=== PATIENT | female | born 1995 | race Caucasian/White ===

== ENCOUNTER 2024-03-15 15:04 | Emergency (ER) | payer OTHER ==
--- OUTSIDE RECORDS SUMMARY | 2024-03-15 15:08 | XMS REPORT | Continuity of Care Document ---
Author Name Unknown Address [address] [facility] [address] [place] [address] [facility] Address [address] [facility] [address] [place] [address] Care Team Providers Care Hammer Runner Name Role Phone PCP, PATIENT DOES NOT HAVE A Primary Care Physic russ Unavailable JACOBS, LORIE FILEMON Attending Clinician Unavailable JACOBS, LORIE CAM Attending Clinician Unavailable Lorie Jacobs MD Attending Clinician [phone] Margie Hutton MD Attending Clinician [phone] AURELIO REESE Attending Clinician Unavailable AURELIO REESE Attending Clinician Unavailable Aurelio Reese NP Attending Clinician [phone] Doctor Unassigned, [place] Attending Clinician U navailable [email or web address] Attending Clinician Unavailhugo Menezes MD, Saji Wiggins Attending Clinician [phone] [employer], [facility] Attending Clinician Unavailable Pob, [facility] Attending Clinician UnavailCarola Cook MD Attending Clinician [phone] CAROLA LOPEZ Attending Clinician Unavailable RENAE WINSTON Attending Clinician Unavailable RENAE WINSTON Attending Clinician Unavailable Ultrasound, [facility] Attending Clinician UnavailRenae Lau MD Attending Clinician [phone], [facility] Attending Clinician Unavailable Kerry Gentile PA-C Attending Clinician KERRY GENTILE Attending Clinician Unavailable LORIE JACOBS Admitting Clinician Unavailable Lorie Jacobs MD Admitting Clinician [phone] [email or web address] Admitting Clinician Unavaila LORIE Griffiths Admitting Clinician Unavailable Payers Payer Name Policy Type Policy Number Effective Date Expirati on Date Source [facility] [id number] 2023 00:00[facility]00 [id number] 2022 00:00:00 Problems Condition Name Condition Details Condition Category Status Onset Date Resolution Date Last Treatment Date Treating Clinician Comments Source 38 weeks gestation of 38 weeks gestation of Disease Active 2023-03 00:00: 00 [facility] No care in current in third trimester No care in current in third trimester Disease Active 2023-03 00:00: 00 [facility] Mild pre-eclamp chrissie in third trimester Mild pre-eclamp chrissie in third trimester Disease Active 2023-03 00:00: 00 [facility] Maternal care for decelerati ons during Maternal care for decelerati ons during Disease Active 2023-03 00:00: 00 [facility] Encounter for screening for maternal depression Encounter for screening for maternal depression Disease Active 2022-03 00:00: 00 [facility] Obesity (BMI 30-39.9) Obesity (BMI 30-39.9) Disease Active 5-15 00:00: 00 [facility] Liveborn infant, of etienne , born in hospital by vaginal delivery Liveborn , of etienne , born in hospital by vaginal delivery Disease Active 2022-03 0-26 00:00: 00 2023-02-15 00:00:00 2023-02-15 13:52:47 [facility] 39 weeks gestation of 39 weeks gestation of Disease Resolve d 2022-03 0-25 00:00: 00 2023-02-15 00:00:00 2023-02-15 13:52:46 [facility] Polyhydram nios, antepartum , single or unspecifie d fetus Polyhydram nios, antepartum , single or unspecifie d fetus Disease Resolve d 8-29 00:00: 00 2023-02-15 00:00:00 2023-02-15 13:52:45 [facility] Gastroesop hageal reflux disease, unspecifie d whether esophagiti s present Gastroesop hageal reflux disease, unspecifie d whether esophagiti s present Disease Resolve d 7-21 00:00: 00 2023-02-15 00:00:00 2023-02-15 13:52:44 [facility] High-risk in third trimester High-risk in third trimester Disease Active 5-15 00:00: 00 2023-02-15 00:00:00 2023-02-15 13:52:41 [facility] Allergies, Adverse Reactions, Alerts Allergy Name Allergy Type Status Severity Reaction(s) Onset Date Inactive Date Treating Clinician Comments Source NO KNOWN ALLERGIE S Drug Class Active [facility] Social History Social Habit Start Date Stop Date Quantity Comments Source ASSERTION 2022-04-25 00:00:00 [facility] Gender identity [facility] History of tobacco use Passive smoker [facility] Alcoholic beverage intake 2024-01-27 00:00:00 2024-01-27 00:00:00 Ex-drinker (finding) [facility] Tobacco use and exposure 2024-01-26 00:00:00 2024-01-26 00:00:00 Smokeless tobacco non-user [facility] Education 2024-01-26 00:00:00 2024-01-26 00:00:00 13 [facility] Alcohol intake 2023-02-15 00:00:00 2023-02-15 00:00:00 Ex-drinker (finding) [facility] History of Social function 2022-12-21 00:00:00 2022-12-21 00:00:00 [facility] Exposure to SARS-CoV-2 (event) 2022-08-04 00:00:00 2022-08-14 07:54:00 Not sure [facility] Sex assigned at 1995 00:00:00 1995 00:00:00 [facility] Smoking Status Start Date Stop Date Source Tobacco smoking consumption unknown [facility] Never smoked tobacco [facility] Medications Ordered Medication Name Filled Medication Name Start Date Stop Date Current Medication? Ordering Clinician Indication Dosage Frequency Signature (SIG) Comments Components Source vitamin w/FA tablet 2023-03 00:00: 00 Yes [id number] 102 1{tbl} Take 1 tablet by mouth in the morning. [facility] docusate 100 mg capsule 2023-03 00:00: 00 Yes [id number] 102 200mg Take 2 capsules by mouth once daily as needed for Constipati on. [facility] ferrous sulfate 325 mg (65 mg iron) tablet 2023-03 00:00: 00 Yes [id number] 102 325mg Take 1 tablet by mouth in the morning. [facility] ibuprofen 800 mg tablet 2023-03 00:00: 00 Yes [id number] 102 800mg Take 1 tablet by mouth every 8 (eight) hours as needed (pain). Take with food or milk. [facility] acetaminoph en 500 mg tablet 2023-03 00:00: 00 Yes [id number] 102 1000mg Take 2 tablets by mouth every 8 (eight) hours as needed for Pain. [facility] KCL (KLOR-CON M20) tablet 40 mEq 2023-03 16:45: 00 01-26 16:45 :00 No 40meq 40 mEq, Oral, ONCE, 1 dose, On Sat01/27/24 at 1045, Routine [facility] magnesium sulfate in water 2 gram/50 mL (4 %) infusion 2 g 2023-03 16:45: 00 01-26 17:59 :00 No 2g 2 g, IV Piggyback, Administer over 60 Minutes, ONCE, 1 dose, On Sat01/27/24 at 1045, Routine [facility] famotidine (PEPCID (PF)) injection 20 mg 2023-03 14:30: 00 Yes 20mg 20 mg, Slow IV Push, Q12H, First dose on Sat01/27/24 at 0830, Until Discontinu ed, Routine [facility] rho(D) immune globulin (RHOPHYLAC) injection 300 mcg 2023-03 14:21: 10 Yes 300ug [facility] witch Amor (TUCKS) 50 % topical pad 2023-03 14:21: 03 Yes Topical, Q4HPRN, Starting on Sat01/27/24 at 0821, Until Discontinu ed, Routine, rectal/hem orrhoidal pain [facility] HYDROcodone -acetaminop hen (NORCO 5) tablet 1 tablet 2023-03 14:21: 03 Yes 1{tbl} [facility] ibuprofen (IBU) tablet 600 mg 2023-03 14:21: 03 Yes 600mg 600 mg, Oral, Q6HPRN, Starting on Sat01/27/24 at 0821, Until Discontinu ed, Routine, Pain (scale 4-6) [facility] acetaminoph en (TYLENOL) tablet 650 mg 2023-03 14:21: 03 Yes 650mg [facility] diphenhydrA MINE (BENADRYL) tablet 25 mg 2023-03 14:21: 03 Yes 25mg [facility] ondansetron (ZOFRAN (PF)) injection 4 mg 2023-03 14:21: 03 Yes 4mg [facility] simethicone (GAS RELIEF (SIMETHICON E)) chewable tablet 160 mg 2023-03 14:21: 03 Yes 160mg [facility] docusate (COLACE) capsule 200 mg 2023-03 14:21: 03 Yes 200mg [facility] magnesium hydroxide (MILK OF MAGNESIA) 400 mg/5 mL suspension 30 mL 2023-03 14:21: 03 Yes 30mL [facility] benzocaine- menthol (DERMOPLAST ) 20-0.5 % topical spray 2023-03 14:21: 03 Yes Topical, PRN, Starting on Sat01/27/24 at 0821, Until Discontinu ed, Routine, Perineum discomfort [facility] NaCl 0.9% (NS) bolus infusion 500 mL 2023-03 08:45: 00 01-26 07:55 :00 No 500mL at 999 mL/hr, 500 mL, IV Infusion, ONCE, 1 dose, On Sat01/27/24 at 0245, STAT [facility] fentaNYL-ro pivacaine 2 mcg/mL-0.1 % (PF) in NS 200 mL epidural infusion RTU 2023-03 08:12: 00 01-26 21:11 :27 No Intra-op [facility] KCL (KLOR-CON M20) tablet 40 mEq 2023-03 03:30: 00 01-26 07:51 :00 No 40meq 40 mEq, Oral, Q4H, 2 doses, First dose on Sat01/26/24 at 2130, Last dose on Sat01/27/24 at 0000, Routine [facility] oxytocin (PITOCIN) 30 units in NS 500 mL IV infusion 2023-03 03:01: 36 01-26 14:21 :08 No 2mU/min at 2-40 mL/hr, IV Infusion, TITRATE, Starting on Sat01/26/24 at 2101, Until Sat01/27/24 at 0821, SULMA [facility] proMETHazin e (PHENERGAN) 25 mg in NS 50 mL IV piggyback (CNR) 2023-03 02:46: 09 Yes 25mg 25 mg, IV Piggyback, at 200 mL/hr Administer over 15 Minutes, Q6HPRN, Starting on Sat01/26/24 at 2046, Until Discontinu ed, Routine, Nausea and Vomiting (N/V) [facility] FENTanyl (PF) (SUBLIMAZE) injection 100 mcg 2023-03 02:03: 35 01-26 14:21 :08 No 100ug 100 mcg, Slow IV Push, Q1HPRN, Starting on Sat01/26/24 at 2002, Until Sat01/27/24 at 0821, Routine, Pain (scale 7-10) [facility] ondansetron (ZOFRAN (PF)) injection 4 mg 2023-03 02:02: 56 Yes 4mg 4 mg, Slow IV Push, Q8HPRN, Nausea and Vomiting (N/V), Starting on Sat01/26/24 at 2001, Doses of ondansetro n 16 mg and above need to be administer ed via IV piggyback. For Dose >=24mg ECG monitoring is advisable. [facility] methylergon ovine (METHERGINE ) injection 0.2 mg 2023-03 01:56: 16 01-26 13:23 :00 No .2mg 0.2 mg, Intramuscu lar, Q4HPRN, 1 dose, Starting on Sat01/26/24 at 1955, Until Sat01/27/24 at 0723, Routine, PPH [facility] oxytocin (PITOCIN) 30 units in NS 500 mL IV infusion 2023-03 01:56: 16 01-26 13:10 :00 No 600mL/h 600 mL/hr, IV Infusion, PRN, PPH, Starting on Sat01/26/24 at 1955, For 1 dose, As instructed by physician at bedside. [facility] sodium citrate-cit marge acid (BICITRA) 500-334 mg/5 mL solution 30 mL 2023-03 01:56: 16 01-26 06:29 :00 No 30mL 30 mL, Oral, PRE-PROCED URE ONCE, 1 dose, Starting on Sat01/26/24 at 1955, Until Sat01/27/24 at 0029, Routine, Surgery/Pr ocedure [facility] D5W-LR IV infusion 1,000 mL 2023-03 01:56: 16 01-26 14:21 :08 No 1000mL at 1-75 mL/hr, IV Infusion, TITRATE, Starting on Sat01/26/24 at 1955, Until Sat01/27/24 at 0821, Routine [facility] cefTRIAXone (ROCEPHIN) 2 g in NaCl 0.9% (NS) 100 mL MINI-BAG 12-02 22:45: 00 12-02 22:48 :00 No 2g 2 g, IV Piggyback, ONCE, 1 dose, On Sat12/03/23 at 1745, Administer over 30 Minutes, 100 mL, Reason for Anti-Infec tive: Documented Infection, Documented Infection Site: Urine, Duration of Therapy: Once (ED) [facility] pantoprazol e (PROTONIX) injection 40 mg 12-02 20:15: 00 12-02 19:25 :00 No 40mg 40 mg, Slow IV Push, ONCE, 1 dose, On Sat12/03/23 at 1515 [facility] ondansetron (ZOFRAN (PF)) injection 4 mg 12-02 19:30: 00 12-02 19:24 :00 No 4mg 4 mg, Slow IV Push, ONCE, 1 dose, On Sat12/03/23 at 1430, SULMA [facility] NaCl 0.9% (NS) bolus infusion 1,000 mL 12-02 19:15: 00 12-02 21:00 :00 No 1000mL at 999 mL/hr, 1,000 mL, IV Infusion, ONCE, 1 dose, On Sat12/03/23 at 1415, [facility] ondansetron 4 mg disintegrat ing tablet 12-02 00:00: 00 01-27 00:00 :00 No [id number] 4mg Take 1 tablet by mouth every 8 (eight) hours as needed for Nausea and Vomiting (N/V). [facility] proMETHazin e 25 mg suppository 12-02 00:00: 00 01-27 00:00 :00 No [id number] 25mg Insert 1 Suppositor y into rectum every 4 (four) hours as needed for Nausea and Vomiting (N/V) or N/V unresponsi ve to Ondansetro n. [facility] cefdinir 300 mg capsule 9-17 00:00: 00 12-17 04:59 :00 No [id number] 300mg Take 1 capsule by mouth every 12 (twelve) hours for 14 days. [facility] metroNIDAZO LE (FLAGYL) 500 mg tablet 2022-03 2- 00:00: 00 02-25 05:59 :00 No [id number] 500mg Take 1 tablet by mouth in the morning and 1 tablet in the evening. Do all this for 7 days. [facility] norgestimat e-ethinyl estradioL 0.25-35 mg-mcg per tablet 2022-03 00:00: 00 01-27 00:00 :00 No [id number] 1{tbl} Take 1 tablet by mouth in the morning. [facility] Nitrofurant oin&Nit. Macrocryst (MACROBID) 100 mg capsule 2022-03 00:00: 00 02-21 05:59 :00 No [id number] 100mg Take 1 capsule by mouth in the morning and 1 capsule in the evening. Do all this for 5 days. [facility] PNV no.95/chandrakant us fum/folic ac ( ORAL) 2022-03 0 07:46: 53 01-11 00:00 :00 No Take by mouth. [facility] vitamin w/FA tablet 2022-03 0 00:00: 00 01-27 00:00 :00 No [id number] 102 1{tbl} Take 1 tablet by mouth in the morning. [facility] docusate 100 mg capsule 2022-03 0 00:00: 00 01-25 00:00 :00 No [id number] 102 200mg Take 2 capsules by mouth once daily as needed for Constipati on. [facility] ferrous sulfate 325 mg (65 mg iron) tablet 2022-03 0 00:00: 00 01-25 00:00 :00 No [id number] 102 325mg Take 1 tablet by mouth in the morning and 1 tablet in the evening. [facility] ibuprofen 600 mg tablet 2022-03 00:00: 00 01-25 00:00 :00 No [id number] 102 600mg Take 1 tablet by mouth every 6 (six) hours as needed (Pain). Take with food or milk. [facility] rho(D) immune globulin (RHOGAM) syringe 300 mcg 2022-03 07:41: 56 Yes 300ug 300 mcg, Intramuscu lar, ONCE, For 1 dose, Conditiona l, Routine [facility] witch Amor (TUCKS) 50 % topical pad 2022-03 07:41: 51 Yes Topical, Q4HPRN, Starting on Sat01/10/23 at 024, Until Discontinu ed, Routine, rectal/hem orrhoidal pain [facility] HYDROcodone -acetaminop hen (NORCO 5) 5-325 mg tablet 1 tablet 2022-03 07:41: 51 Yes 1{tbl} 1 tablet, Oral, Q6HPRN, Starting on Sat01/10/23 at 024, Until Discontinu ed, Routine, Pain (scale 7-10) [facility] ibuprofen (IBU) tablet 600 mg 2022-03 07:41: 51 Yes 600mg 600 mg, Oral, Q6HPRN, Starting on Sat01/10/23 at 024, Until Discontinu ed, Routine, Pain (scale 4-6) [facility] acetaminoph en (TYLENOL) tablet 650 mg 2022-03 07:41: 51 Yes 650mg 650 mg, Oral, Q6HPRN, Starting on Sat01/10/23 at 024, Until Discontinu ed, Routine, Pain (scale 1-3) [facility] diphenhydrA MINE (BENADRYL) tablet 25 mg 2022-03 07:41: 51 Yes 25mg 25 mg, Oral, Q6HPRN, Starting on Sat01/10/23 at 024, Until Discontinu ed, Routine, Sleep, Itching [facility] ondansetron (ZOFRAN (PF)) injection 4 mg 2022-03 07:41: 51 Yes 4mg 4 mg, Slow IV Push, Q8HPRN, Starting on Sat01/10/23 at 0241, Until Discontinu ed, Routine, Nausea and Vomiting (N/V) [facility] simethicone (GAS RELIEF (SIMETHICON E)) chewable tablet 160 mg 2022-03 07:41: 51 Yes 160mg 160 mg, Oral, PC+HSPRN, Starting on Sat01/10/23 at 024, Until Discontinu ed, Routine, Gas [facility] docusate (COLACE) capsule 200 mg 2022-03 07:41: 51 Yes 200mg 200 mg, Oral, QDAILYPRN, Starting on Sat01/10/23 at 0241, Until Discontinu ed, Routine, Constipati on [facility] magnesium hydroxide (MILK OF MAGNESIA) 400 mg/5 mL suspension 30 mL 2022-03 07:41: 51 Yes 30mL 30 mL, Oral, QDAILYPRN, Starting on Sat01/10/23 at 024, Until Discontinu ed, Routine, Constipati on [facility] benzocaine- menthol (DERMOPLAST ) 20-0.5 % topical spray 2022-03 07:41: 51 Yes Topical, PRN, Starting on Sat01/10/23 at 024, Until Discontinu ed, Routine, Perineum discomfort [facility] PNV no.95/chandrakant us fum/folic ac ( ORAL) 2022-03 02:33: 55 Yes Take by mouth. [facility] fentaNYL-ro pivacaine 2 mcg/mL-0.1 % (PF) in NS 200 mL epidural infusion RTU 2022-03 01:02: 00 01-10 19:56 :10 No Epidural, ONCE INTRA PROCEDURE, Starting on Sat01/09/23 at 2001, Until Sat01/10/23 at 1456, Routine, Intra-op [facility] lidocaine-e pinephrine (XYLOCAINE W/EPINEPHRI NE) 1.5 %-1:200,000 injection 2022-03 00:53: 00 01-10 11:50 :28 No Intraderma l, ONCE INTRA PROCEDURE, Starting on Sat01/09/23 at 1953, Until Discontinu ed, Routine, Intra-op [facility] misoprostol (CYTOTEC) quarter-tab let 25 mcg 2022-03 16:00: 00 01-10 07:41 :54 No 25ug 25 mcg, Vaginal, Q4H ABX, First dose on Sat01/09/23 at 1100, Until Discontinu ed, Routine [facility] misoprostol (CYTOTEC) quarter-tab let 25 mcg 2022-03 15:00: 00 01-09 16:46 :00 No 25ug 25 mcg, Oral, ONCE, 1 dose, On Sat01/09/23 at 1000, Routine [facility] FENTanyl PF (SUBLIMAZE (PF)) injection 100 mcg 2022-03 14:46: 47 01-10 07:41 :54 No 100ug 100 mcg, Slow IV Push, Q1HPRN, Starting on Sat01/09/23 at 0946, Until Veronica 01/10/23 at 0241, Routine, Pain (scale 7-10), contractio n pain without an epidural and SVE < 8 cm and Cat I strip [facility] oxytocin (PITOCIN) 30 units in NS 500 mL IV infusion 2022-03 14:44: 52 01-10 05:00 :22 No 600mL/h 600 mL/hr, IV Infusion, PRN, PPH, Starting on Sat01/09/23 at 0944, For 1 dose
As instructed by physician at bedside.<b r> [facility] lactated ringers IV infusion 500 mL 2022-03 14:44: 52 01-10 07:41 :54 No 500mL at 999 mL/hr, 500 mL, IV Infusion, PRN - SEE INSTRUCTIO NS, Starting on Sat01/09/23 at 0944, Until Veronica 01/10/23 at 0241, Routine [facility] D5W-LR IV infusion 1,000 mL 2022-03 14:44: 52 01-10 07:41 :54 No 1000mL at 1-125 mL/hr, IV Infusion, TITRATE, Starting on Sat01/09/23 at 0944, Until Sat01/10/23 at 0241, Routine [facility] famotidine 20 mg tablet - 00:00: 00 01-11 00:00 :00 No [id number] 20mg Take 1 tablet by mouth in the morning and 1 tablet in the evening. [facility] PNV no.95/chandrakant us fum/folic ac ( ORAL) 08-27 08:06: 41 Yes Take by mouth. [facility] doxylamine- pyridoxine, vit B6, (DICLEGIS) 10-10 mg per tablet 08-27 00:00: 00 01-11 00:00 :00 No [id number] 2{tbl} Take 2 tablets by mouth at bedtime. [facility] PNV no.95/chandrakant us fum/folic ac ( ORAL) 5-15 14:50: 30 Yes Take by mouth. [facility] Vital Signs Vital Name Observation Time Observation Value Comments S ource Systolic blood pressure 2024-01-28 13:15:00 130 mm[Hg] [facility] Diastolic blood pressure 2024-01-28 13:15:00 70 mm[Hg] [facility] Heart rate 2024-01-28 13:15:00 79 /min [facility] Body temperature 2024-01-28 13:15:00 36.83 [place] [facility] Respiratory rate 2024-01-28 13:15:00 16 /min [facility] Oxygen saturation in Arterial blood by Pulse oximetry 2024-01-28 13:15:00 99 /min [facility] Body height 2024-01-27 01:03:00 170.2 cm [facility] Body weight 2024-01-27 01:03:00 92.987 kg [facility] BMI 2024-01-27 01:03:00 32.11 kg/m2 [facility] Systolic blood pressure 2023-12-03 22:30:00 144 mm[Hg] [facility] Diastolic blood pressure 2023-12-03 22:30:00 74 mm[Hg] [facility] Heart rate 2023-12-03 22:30:00 88 /min [facility] Respiratory rate 2023-12-03 22:30:00 20 /min [facility] Oxygen saturation in Arterial blood by Pulse oximetry 2023-12-03 22:30:00 99 /min [facility] Body temperature 2023-12-03 17:53:00 36.89 [place] [facility] Body height 2023-12-03 17:53:00 170.2 cm [facility] Body weight 2023-12-03 17:53:00 104.327 kg [facility] BMI 2023-12-03 17:53:00 36.02 kg/m2 [facility] Systolic blood pressure 2023-02-15 20:07:00 118 mm[Hg] [facility] Diastolic blood pressure 2023-02-15 20:07:00 79 mm[Hg] [facility] Heart rate 2023-02-15 20:07:00 100 /min [facility] Respiratory rate 2023-02-15 20:07:00 18 /min [facility] Body height 2023-02-15 20:07:00 170.2 cm [facility] Body weight 2023-02-15 20:07:00 93.441 kg [facility] BMI 2023-02-15 20:07:00 32.26 kg/m2 [facility] Systolic blood pressure 2023-01-11 13:00:00 121 mm[Hg] [facility] Diastolic blood pressure 2023-01-11 13:00:00 84 mm[Hg] [facility] Heart rate 2023-01-11 13:00:00 68 [facility] Body temperature 2023-01-11 13:00:00 36.33 [place] [facility] Respiratory rate 2023-01-10 17:00:00 18 /min [facility] Oxygen saturation in Arterial blood by Pulse oximetry 2023-01-10 17:00:00 100 /min [facility] Body height 2023-01-09 15:23:00 170.2 cm [facility] Body weight 2023-01-09 15:23:00 103.692 kg [facility] BMI 2023-01-09 15:23:00 35.80 kg/m2 [facility] Systolic blood pressure 2022-12-26 19:11:00 129 mm[Hg] [facility] Diastolic blood pressure 2022-12-26 19:11:00 84 mm[Hg] [facility] Heart rate 2022-12-26 19:11:00 90 /min [facility] Body temperature 2022-12-26 19:11:00 36.28 [place] [facility] Body height 2022-12-26 19:11:00 170.2 cm [facility] Body weight 2022-12-26 19:11:00 103.511 kg [facility] BMI 2022-12-26 19:11:00 35.74 kg/m2 [facility] Systolic blood pressure 2022-12-21 15:54:00 132 mm[Hg] [facility] Diastolic blood pressure 2022-12-21 15:54:00 87 mm[Hg] [facility] Heart rate 2022-12-21 15:54:00 78 /min [facility] Respiratory rate 2022-12-21 15:54:00 18 /min [facility] Body height 2022-12-21 15:54:00 170.2 cm [facility] Body weight 2022-12-21 15:54:00 104.327 kg [facility] BMI 2022-12-21 15:54:00 36.02 kg/m2 [facility] Systolic blood pressure 2022-11-15 12:58:00 112 mm[Hg] [facility] Diastolic blood pressure 2022-11-15 12:58:00 74 mm[Hg] [facility] Heart rate 2022-11-15 12:58:00 77 /min [facility] Body temperature 2022-11-15 12:58:00 36.56 [place] [facility] Body height 2022-11-15 12:58:00 170.2 cm [facility] 2022-11-15 12:58:00 100.699 kg [facility] BMI 2022-11-15 12:58:00 34.77 kg/m2 [facility] Systolic blood pressure 2022-11-13 18:53:00 114 mm[Hg] [facility] Diastolic blood pressure 2022-11-13 18:53:00 74 mm[Hg] [facility] Heart rate 2022-11-13 18:53:00 94 /min [facility] Respiratory rate 2022-11-13 18:53:00 18 /min [facility] Body height 2022-11-13 18:53:00 170.2 cm [facility] Body weight 2022-11-13 18:53:00 100.789 kg [facility] BMI 2022-11-13 18:53:00 34.80 kg/m2 [facility] Oxygen saturation in Arterial blood by Pulse oximetry 2022-11-13 18:53:00 98 /min [facility] Systolic blood pressure 2022-10-05 17:58:00 130 mm[Hg] [facility] Diastolic blood pressure 2022-10-05 17:58:00 74 mm[Hg] [facility] Heart rate 2022-10-05 17:58:00 79 /min [facility] Body temperature 2022-10-05 17:58:00 36.72 [place] [facility] Respiratory rate 2022-10-05 17:58:00 18 /min [facility] Body height 2022-10-05 17:58:00 170.2 cm [facility] Body weight 2022-10-05 17:58:00 96.435 kg [facility] BMI 2022-10-05 17:58:00 33.30 kg/m2 [facility] Oxygen saturation in Arterial blood by Pulse oximetry 2022-10-05 17:58:00 99 /min [facility] Systolic blood pressure 2022-08-27 13:05:00 116 mm[Hg] [facility] Diastolic blood pressure 2022-08-27 13:05:00 69 mm[Hg] [facility] Heart rate 2022-08-27 13:05:00 77 /min [facility] Body temperature 2022-08-27 13:05:00 36.83 [place] [facility] Respiratory rate 2022-08-27 13:05:00 18 /min [facility] Body height 2022-08-27 13:05:00 170.2 cm [facility] Body weight 2022-08-27 13:05:00 94.348 kg [facility] BMI 2022-08-27 13:05:00 32.58 kg/m2 [facility] Systolic blood pressure 2022-07-30 19:48:00 102 mm[Hg] [facility] Diastolic blood pressure 2022-07-30 19:48:00 65 mm[Hg] [facility] Heart rate 2022-07-30 19:48:00 78 /min [facility] Body temperature 2022-07-30 19:48:00 36.89 [place] [facility] Respiratory rate 2022-07-30 19:48:00 18 /min [facility] Body height 2022-07-30 19:48:00 170.2 cm [facility] Body weight 2022-07-30 19:48:00 93.078 kg [facility] BMI 2022-07-30 19:48:00 32.14 kg/m2 [facility] Procedures Procedure Date / Time Performed Performing Clinician Source MAGNESIUM 2024-01-28 07:40:00 Lorie Jacobs [facility] BASIC METABOLIC PANEL (NA, K, CL, CO2, GLUCOSE, BUN, CREATININE, CA) 2024-01-28 07:40:00 Lorie Jacobs [facility] CBC WITH DIFF 2024-01-28 07:40:00 Lorie Jacobs [facility] SGOT (ASPARTATE AMINO TRANSFER) 2024-01-27 12:34:00 Lorie Jacobs [facility] CREATININE 2024-01-27 12:34:00 Lorie Jacobs [facility] ALANINE AMINO TRANSFERASE(SGPT 2024-01-27 12:34:00 Lorie Jacobs [facility] LACTATE DEHYDROGENASE 2024-01-27 12:34:00 Lorie Jacobs [facility] URIC ACID 2024-01-27 12:34:00 Lorie Jacobs [facility] MAGNESIUM 2024-01-27 12:34:00 Lorie Jacobs [facility] BASIC METABOLIC PANEL (NA, K, CL, CO2, GLUCOSE, BUN, CREATININE, CA) 2024-01-27 12:34:00 Lorie Jacobs [facility] CBC WITH DIFF 2024-01-27 12:34:00 Lorie Jacobs [facility] CENTRAL NEURAXIAL BLOCK 2024-01-27 08:00:00 Margie Hutton [facility] US PELVIS > 14 WEEKS WITH TRANSVAGINAL 2024-01-27 04:27:11 Lorie Jacobs [facility] AMYLASE 2024-01-27 02:28:00 Lorie Jacobs [facility] LIPASE 2024-01-27 02:28:00 Lorie Jacobs [facility] MAGNESIUM 2024-01-27 02:28:00 Lorie Jacobs [facility] COMP. METABOLIC PANEL ([id number]) 2024-01-27 02:28:00 Lorie Jacobs [facility] URINE DRUG (IMMUNOASSAY) - COMPREHENSIVE DRUG SCREEN 2024-01-27 02:28:00 Lorie Jacobs [facility] CBC WITH DIFF 2024-01-27 02:28:00 Lorie Jacobs [facility] URINALYSIS 2024-01-27 02:28:00 Lorie Jacobs [facility] HEPATITIS B SURFACE ANTIGEN 2024-01-27 02:28:00 Jacobs, Lorie [facility] HB ABO GROUPING 2024-01-27 02:28:00 JacobsLorie [facility] URINE CULTURE 2024-01-27 02:28:00 Jacobs Lorie [facility] RHO (D) IMMUNE GLOBULIN 2024-01-27 02:28:00 JacobsLorie [facility] ADC OR RIANA ONLY - RPR 2024-01-27 02:28:00 JacobsGracie [facility] HIV 1/2 AG-AB WITH REFLEX 2024-01-27 02:28:00 MarioGracie [facility] LIPASE 2023-12-03 19:23:00 Aurelio Reese [facility] COMP. METABOLIC PANEL ([id number]) 2023-12-03 19:23:00 Aurelio Reese [facility] CBC WITH DIFF 2023-12-03 19:23:00 Sav Aurelio [facility] URINALYSIS 2023-12-03 19:23:00 Sav Aurelio G [facility] CONSENT FOR CONTRACEPTION 2023-02-15 06:01:00 Do ctor Unassigned, [place] [facility] POCT TEST 2023-02-15 00:00:00 JacobsLorie [facility] CBC WITH DIFF 2023-01-11 08:21:00 [facility] CENTRAL NEURAXIAL BLOCK 2023-01-10 00:31:00 Monse Menezes [facility] US PELVIS > 14 WEEKS 2023-01-09 16:32:45 JacobsLorie [facility] CBC WITH DIFF 2023-01-09 16:32:00 Jacobs Lorie [facility] HEPATITIS B SURFACE ANTIGEN 2023-01-09 16:32:00 Jacobs [facility] HB ABO GROUPING 2023-01-09 16:32:00 JacobsLorie [facility] RHO (D) IMMUNE GLOBULIN 2023-01-09 16:32:00 Mario Lorie [facility] ADC OR RIANA ONLY - RPR 2023-01-09 16:32:00 Gracie Jacobs [facility] HIV 1/2 AG-AB WITH REFLEX 2023-01-09 16:32:00 Gracie Jacobs [facility] CONSENT/REFUSAL FOR DIAGNOSIS AND TREATMENT 2023-01-09 14:46:15 Doctor Unassigned, [place] [facility] ASSIGNMENT OF BENEFITS 2023-01-09 14:43:55 Docto r Unassigned, [place] [facility] NON-STRESS TEST 2022-12-26 20:27:33 Lorie Jacobs [facility] POCT URINALYSIS W/O SPECIFIC GRAVITY 2022-12-26 00:00:00 Lorie Jacobs [facility] NON-STRESS TEST 2022-12-21 17:51:42 Adum, Carola L [facility] DSU PRE-OP 2022-12-21 05:01:00 Doctor Unass igned, [place] [facility] POCT URINALYSIS W/O SPECIFIC GRAVITY 2022-12-21 00:00:00 Adum, Carola Guthrie [facility] DME/SUPPLY JUSTIFICATION 2022-11-28 05:01:00 Doc juan Unassigned, [place] [facility] NON-STRESS TEST 2022-11-15 16:08:32 Lorie Jacobs [facility] NON-STRESS TEST 2022-11-13 23:12:24 Lorie Jacobs [facility] POCT URINALYSIS W/O SPECIFIC GRAVITY 2022-11-13 00:00:00 Lorie Jacobs [facility] SECOND AND THIRD TRIMESTER ULTRASOUND 2022-11-02 19:55:00 Kerry Gentile [facility] POCT URINALYSIS W/O SPECIFIC GRAVITY 2022-10-05 00:00:00 Lorie Jacobs [facility] INSURANCE CORRESPONDENCE 2022-09-06 05:01:00 Kodak martinez Unassigned, [place] [facility] POCT URINALYSIS W/O SPECIFIC GRAVITY 2022-08-27 00:00:00 Kerry Gentile [facility] SCANNED LAB RESULTS 2022-08-17 05:01:00 Doctor U vitorgned, [place] [facility] ASSIGNMENT OF BENEFITS 2022-07-30 19:24:42 Docto r Unassigned, [place] [facility] POCT URINALYSIS W/O SPECIFIC GRAVITY 2022-07-30 00:00:00 Lorie Jacobs [facility] Encounters Start Date/Time End Date/Time Encounter Type Admission Type Attending [facility] Care Facility Care Department Encounter ID Source 2024-03-06 12:45:00 2024-03-06 12:45:00 Outpatient R LORIE JCAOBS VIEN [facility] [id number] [facility] 2024-02-03 00:00:00 2024-02-03 10:48:36 Telephone Lorie Jacobs [facility] 1.840.114 350.1.13.10 4.2.7.2.686 [id number] 134 [id number] [facility] 2024-02-03 08:30:00 2024-02-03 08:30:00 Outpatient R [facility] [id number] [facility] 2024-01-31 00:00:00 2024-01-31 15:50:32 Telephone Lorie Jacobs [facility] 1.840.114 350.1.13.10 4.2.7.2.686 [id number] 134 [id number] [facility] 2024-01-26 19:05:00 2024-01-28 12:40:00 Inpatient X LORIE JACOBS VIEN [facility] [id number] [facility] 2024-01-26 19:05:00 2024-01-28 12:40:00 Hospital Encounter Lorie Jacobs [facility] 1.2840.114 350.1.13.10 4.2.7.2.686 [id number] [facility] 2024-01-27 02:01:00 2024-01-27 11:09:00 Anesthesia Event Margie Hutton [facility] 1.2840.114 350.1.13.10 4.2.7.2.686 [id number] [facility] 2024-01-13 10:00:00 2024-01-13 10:00:00 Outpatient R LORIE JACOBS [facility] [id number] [facility] 2024-01-09 09:15:00 2024-01-09 09:15:00 Outpatient R LORIE JACOBS [facility] [id number] [facility] 2023-12-03 12:56:00 2023-12-03 17:48:00 Emergency X AURELOI REESE PAMALA [facility] E[facility] [id number] [facility] 2023-12-03 12:56:00 2023-12-03 17:48:00 Emergency Aurelio Reese [facility] 1.840.114 350.1.13.10 4.2.7.2.686 [id number] [facility] 2023-05-31 13:30:00 2023-05-31 13:30:00 Outpatient R LORIE JACOBS [facility] [id number] [facility] 2023-03-15 10:45:00 2023-03-15 10:45:00 Outpatient LORIE COREY [facility] [id number] [facility] 2023-02-21 00:00:00 2023-02-21 00:00:00 Telephone Lorie Jacobs [facility] 1..840.114 350.1.13.10 4.2.7.2.686 [id number] 134 [id number] [facility] 2023-02-17 00:00:00 2023-02-17 00:00:00 Case Management Loire Jacobs [facility] 1..840.114 350.1.13.10 4.2.7.2.686 [id number] 134 [id number] [facility] 2023-02-15 13:45:00 2023-02-15 14:25:05 Outpatient R LORIE JACOBS [facility] [id number] [facility] 2023-02-15 13:45:00 2023-02-15 14:25:05 Routine Visit JacobsLorie Filemon [facility] 1.2840.114 350.1.13.10 4.2.7.2.686 [id number] [facility] 2023-02-15 00:00:00 2023-02-15 00:00:00 Orders Only Doctor Unassigned, [place] [facility] 1.2840.114 350.1.13.10 4.2.7.2.686 [id number] [facility] 2023-01-12 00:00:00 2023-01-12 00:00:00 Outpatient GC_GCBZW_Ka diyala_S PRIV PRIV [id number] [facility] 2023-01-09 09:43:00 2023-01-11 11:45:00 Inpatient P LORIE JACOBS [facility] [id number] [facility] 2023-01-09 09:43:00 2023-01-11 11:45:00 Hospital Encounter Lorie Jacobs [facility] 1.2840.114 350.1.13.10 4.2.7.2.686 [id number] [facility] 2023-01-09 19:30:00 2023-01-10 06:46:00 Anesthesia Event Saji Menezes [facility] 1.2840.114 350.1.13.10 4.2.7.2.686 [id number] [facility] 2023-01-03 15:00:00 2023-01-03 15:00:00 Outpatient R [facility] [id number] [facility] 2023-01-02 13:00:00 2023-01-02 13:00:00 Outpatient P [facility] [id number] [facility] 2022-12-28 10:15:00 2022-12-28 10:15:00 Outpatient P [facility] [id number] [facility] 2022-12-26 14:00:00 2022-12-26 14:46:55 Outpatient R LORIE JACOBS [facility] [id number] [facility] 2022-12-26 14:00:00 2022-12-26 14:46:55 Routine Visit Room, [facility] Lorie Jacobs [facility] 1.2.840.114 350.1.13.10 4.2.7.2.686 [id number] [facility] 2022-12-25 11:00:00 2022-12-25 11:00:00 Outpatient R [facility] [id number] [facility] 2022-12-21 13:15:00 2022-12-21 13:30:00 Quality Control Clerk Visit Pob, [facility] 1.2.840.114 350.1.13.10 4.2.7.2.686 [id number] [facility] 2022-12-21 10:00:00 2022-12-21 11:50:24 Outpatient R JESSICA [facility] [id number] [facility] 2022-12-21 10:00:00 2022-12-21 11:50:24 Routine Visit Room, [facility] 1.2.840.114 350.1.13.10 4.2.7.2.686 [id number] 134 [id number] [facility] 2022-12-21 00:00:00 2022-12-21 00:00:00 Orders Only Doctor Unassigned, [place] [facility] 1.2.840.114 350.1.13.10 4.2.7.2.686 [id number] [id number] [facility] 2022-12-20 10:00:00 2022-12-20 10:00:00 Outpatient R [facility] [id number] [facility] 2022-12-17 15:00:00 2022-12-17 15:00:00 Outpatient R [facility] [id number] [facility] 2022-11-30 10:15:00 2022-11-30 10:15:00 Outpatient P [facility] [id number] [facility] 2022-11-28 00:00:00 2022-11-28 00:00:00 Telephone Lorie Jacobs [facility] 1.2.840.114 350.1.13.10 4.2.7.2.686 [id number] [facility] 2022-11-28 00:00:00 2022-11-28 00:00:00 Orders Only Doctor Unassigned, [place] [facility] 1.2.840.114 350.1.13.10 4.2.7.2.686 [id number] [facility] 2022-11-27 11:00:00 2022-11-27 11:00:00 Outpatient R [facility] [id number] [facility] 2022-11-22 09:00:00 2022-11-22 09:00:00 Outpatient LORIE COREY [facility] [id number] [facility] 2022-11-21 10:00:00 2022-11-21 10:00:00 Outpatient P [facility] [id number] [facility] 2022-11-20 11:00:00 2022-11-20 11:00:00 Outpatient R LORIE JACOBS [facility] [id number] [facility] 2022-11-15 08:00:00 2022-11-15 08:44:48 Outpatient R LORIE JACOBS [facility] [id number] [facility] 2022-11-15 08:00:00 2022-11-15 08:44:48 Routine Visit Room, [facility] 1.2.840.114 350.1.13.10 4.2.7.2.686 [id number] 134 [id number] [facility] 2022-11-14 00:00:00 2022-11-14 00:00:00 [facility] 1.2.840.114 350.1.13.10 4.2.7.2.686 [id number] 134 [id number] [facility] 2022-11-13 14:00:00 2022-11-13 14:36:25 Outpatient R LORIE JACOBS [facility] [id number] [facility] 2022-11-13 14:00:00 2022-11-13 14:36:25 Routine Visit Room, [facility] Lorie Jacobs [facility] 1.2.840.114 350.1.13.10 4.2.7.2.686 [id number] [facility] 2022-11-13 14:00:00 2022-11-13 14:00:00 Outpatient R [facility] [id number] [facility] 2022-11-09 10:00:00 2022-11-09 10:00:00 Outpatient R [facility] [id number] [facility] 2022-11-09 09:30:00 2022-11-09 09:30:00 Outpatient R LORIE JACOBS [facility] [id number] [facility] 2022-11-02 14:15:00 2022-11-02 14:52:46 Outpatient P RENAE WINSTON SANGEETA [facility] [id number] [facility] 2022-11-02 14:15:00 2022-11-02 14:52:46 Quality Control Clerk Visit Ultrasound, [facility] Lorie Jacobs Sangeeta [facility] GROUP LEADER SEMICONDUCTOR TESTING [facility] 1..840.114 350.1.13.10 4.2.7.2.686 [id number] [facility] 2022-11-02 11:15:00 2022-11-02 11:30:00 Quality Control Clerk Visit 2, [facility] Lab Lorie Jacobs [facility] 1..840.114 350.1.13.10 4.2.7.2.686 [id number] [facility] 2022-11-01 13:15:00 2022-11-01 13:15:00 Outpatient R [facility] [id number] [facility] 2022-10-11 10:45:00 2022-10-11 10:45:00 Outpatient P [facility] [id number] [facility] 2022-10-05 13:45:00 2022-10-05 13:45:00 Routine Visit Lorie Jacobs [facility] 1..840.114 350.1.13.10 4.2.7.2.686 [id number] [facility] 2022-10-05 13:45:00 2022-10-05 13:13:28 Outpatient R LORIE JACOBS [facility] [id number] [facility] 2022-09-28 11:00:00 2022-09-28 11:00:00 Outpatient R LORIE JACOBS [facility] [id number] [facility] 2022-09-25 09:45:00 2022-09-25 09:45:00 Outpatient P [facility] [id number] [facility] 2022-09-12 00:00:00 2022-09-12 00:00:00 Telephone Lorie Jacobs [facility] 1.2.840.114 350.1.13.10 4.2.7.2.686 [id number] 134 [id number] [facility] 2022-09-06 00:00:00 2022-09-06 00:00:00 Orders Only Doctor Unassigned, [place] [facility] 1.2.840.114 350.1.13.10 4.2.7.2.686 [id number] [facility] 2022-08-29 00:00:00 2022-08-29 00:00:00 Telephone Lorie Jacobs Filemon [facility] 1.2.840.114 350.1.13.10 4.2.7.2.686 [id number] [facility] 2022-08-27 08:45:00 2022-08-27 09:00:00 Routine Visit Kerry Gentile [facility] 1.2.840.114 350.1.13.10 4.2.7.2.686 [id number] [facility] 2022-08-27 08:45:00 2022-08-27 08:45:00 Outpatient R KERRY GENTLIE [facility] [id number] [facility] 2022-08-22 00:00:00 2022-08-22 00:00:00 Telephone Mario Lorie [facility] 1.2.840.114 350.1.13.10 4.2.7.2.686 [id number] 134 [id number] [facility] 2022-08-17 10:15:00 2022-08-17 10:15:00 Outpatient R LORIE JACOBS [facility] [id number] [facility] 2022-08-17 10:15:00 2022-08-17 10:15:00 Quality Control Clerk Visit 2, [facility] Lab Lorie Jacobs [facility] 1.2.840.114 350.1.13.10 4.2.7.2.686 [id number] [facility] 2022-08-17 00:00:00 2022-08-17 00:00:00 Orders Only Doctor Unassigned, [place] [facility] 1.2.840.114 350.1.13.10 4.2.7.2.686 [id number] [facility] 2022-08-14 09:15:00 2022-08-14 09:30:00 Quality Control Clerk Visit 2, [facility] Lab Lorie Jacobs [facility] 1.2840.114 350.1.13.10 4.2.7.2.686 [id number] [facility] 2022-08-14 09:15:00 2022-08-14 09:15:00 Outpatient R LORIE JACOBS [facility] [id number] [facility] 2022-07-30 14:30:00 2022-07-30 15:33:29 Initial Visit Lorie Jacobs [facility] 1.2840.114 350.1.13.10 4.2.7.2.686 [id number] [facility] 2022-07-30 14:30:00 2022-07-30 15:33:29 Outpatient R LORIE JACOBS [facility] [id number] [facility] 2022-07-30 00:00:00 2022-07-30 00:00:00 Orders Only Doctor Unassigned, [place] [facility] 1.2.840.114 350.1.13.10 4.2.7.2.686 [id number] [facility] Results Test Description Test Time Test Comments Results Result Co mments Source [facility]12 09:07:32* Test Item Value Reference Range Interpretation Comme nts MAGNESIUM (test code = 0212175357) 1.8 mg/dL 1.7-2.4 Lab Interpretation (test cod e = 41657-0) Normal [facility] with [id number] 08:44:31* Test Item Value Reference Range Interpretation Comme nts WBC (test code = 6690-2) 9.21 4.30-11.10 RBC (test code = 789-8) 3.08 3.93-5.25 L HGB (test code = 718-7) 9.3 g/dL 11.6-15.0 L HCT (test code = 4544-3) 27.2 % 35.7-45.2 L MCV (test code = 787-2) 88.3 fL 80.6-95.5 MCH (test code = 785-6) 30.2 pg 25.9-32.8 MCHC (test code = 786-4) 34.2 g/dL 31.6-35.1 RDW-SD (test code = 82012-7) 40.4 fL 39.0-49.9 RDW-CV (test code = 788-0) 12.9 % 12.0-15.5 PLT (test code = 777-3) 193 166-358 MPV (test code = 17117-3) 12.0 fL 9.5-12.9 NRBC/100 WBC (test code = 5133591462) 0.0 0.0-10.0 NRBC x10^3 (test code = 4706679735) See_Comment [Automated messa ge] The system which generated this result transmitted reference range: 10*3/?L. The reference range was not used to interpret this result as normal/abnormal. GRAN MAT (NEUT) % (test code = 770-8) 57.4 % IMM GRAN % (test code = 0560889459) 0.40 % LYMPH % (test code = 736-9) 31.9 % MONO % (test code = 5905-5) 8.8 % EOS % (test code = 713-8) 1.2 % BASO % (test code = 706-2) 0.3 % GRAN MAT x10^3(ANC) (test code = 5477171036) 5.28 10*3/uL 1.88-7.09 IMM GRAN x10^3 (test code = 0645573094) 0.04 10*3/uL 0.00-0.06 LYMPH x10^3 (test code = 731-0) 2.94 10*3/uL 1.32-3.29 MONO x10^3 (test code = 742-7) 0.81 10*3/uL 0.33-0.92 EOS x10^3 (test code = 711-2) 0.11 10*3/uL 0.03-0.39 BASO x10^3 (test code = 704-7) 0.03 10*3/uL 0.01-0.07 Lab Interpretation (test code = 10918-9) [facility] IMMUNE ZUSWDKKC8128-16-93 16:36:25* Test Item Value Reference Range Interpretation Comme nts RHIG CANDIDATE? (test code = 5188) No- see comment Patient is not a candidate for RhIg- Patient is Rh Positive.Performed at [facility] Laboratory Services - [facility] [address] [place] [id number] Free: [phone] No. [id number] [facility] CenterAlanine Amino Transferase (SGPT)2024-01-27 14:17:55* Test Item Value Reference Range Interpretation Comme nts ALTv (test code = 1742-6) 23 U/L 5-35 Lab Interpretation (test cod e = 05773-6) Normal [facility] CenterMagnesium2024-11-11 14:11:15* Test Item Value Reference Range Interpretation Comme nts MAGNESIUM (test code = 4452517745) 1.6 mg/dL 1.7-2.4 L Lab Interpretation (test cod e = 67391-6) Abnormal [facility] CenterBasi Metabolic Panel (NA, K, CL, CO2, GLUCOSE, BUN, CREATININE, CA)2024-01-27 14:11:14* Test Item Value Reference Range Interpretation Comme nts NA (test code = 8898798301) 132 mmol/L 135-145 L K (test code = 6203190065) 3.2 mmol/L 3.5-5.0 L CL (test code = 2867258836) 103 mmol/L 98-108 CO2 TOTAL (test code = 2993279054) 19 mmol/L 23-31 L AGAP (test code = 0197792944) 10 2-16 BUN (test code = 2859553732) 6 mg/dL 7-23 L GLUCOSE (test code = 1424400831) 125 mg/dL 70-110 H CREATININE (test code = 2160-0) 0.54 mg/dL 0.50-1.04 CALCIUM (test code = 0252864074) 8.3 mg/dL 8.6-10.6 L eGFR (test code = 60897-6) 130.4 mL/min/1.73m2 CKD-EPI eGFR (2020). Assuming creatinine has been stable day-to-day for at least three months, the eGFR indicates Category G1 (>= 90 mL/min/1.73 m2) Lab Interpretation (test code = 19733-5) Abnormal [facility] CenterLactate Kuxutbzzdentn8767-67-81 14:11:14* Test Item Value Reference Range Interpretation Comme nts LDH (test code = 9634639930) 158 U/L 120-246 Lab Interpretation (test cod e = 05400-1) Normal [facility] CenterUric Acid Smcay3093-00-30 14:10:53* Test Item Value Reference Range Interpretation Comme nts URIC ACID (test code = 3620231352) 4.7 mg/dL 2.9-6.0 Lab Interpretation (test cod e = 69871-5) [facility] Center[facility] (Asparate Amino Transfer)2024-01-27 14:10:33* Test Item Value Reference Range Interpretation Comme nts AST(SGOT) (test code = 0527894401) 22 U/L 13-40 Lab Interpretation (test cod e = 74305-3) Normal [facility] [id number] 14:10:13* Test Item Value Reference Range Interpretation Comme nts CREATININE (test code = 2160-0) 0.54 mg/dL 0.50-1.04 eGFR (test code = 99827-2) 130.4 mL/min/1.73m2 CKD-EPI eGFR (20 21). Assuming creatinine has been stable day-to-day for at least three months, the eGFR indicates Category G1 (>= 90 mL/min/1.73 m2) [facility] CenterCB with [id number] 13:51:51* Test Item Value Reference Range Interpretation Comme nts WBC (test code = 6690-2) 17.38 4.30-11.10 H RBC (test code = 789-8) 3.57 3.93-5.25 L HGB (test code = 718-7) 10.8 g/dL 11.6-15.0 L HCT (test code = 4544-3) 31.4 % 35.7-45.2 L MCV (test code = 787-2) 88.0 fL 80.6-95.5 MCH (test code = 785-6) 30.3 pg 25.9-32.8 MCHC (test code = 786-4) 34.4 g/dL 31.6-35.1 RDW-SD (test code = 43391-7) 40.0 fL 39.0-49.9 RDW-CV (test code = 788-0) 12.8 % 12.0-15.5 PLT (test code = 777-3) 236 166-358 MPV (test code = 38410-4) 12.6 fL 9.5-12.9 NRBC/100 WBC (test code = 3208531142) 0.0 0.0-10.0 NRBC x10^3 (test code = 6679487554) See_Comment [Automated message] The system which generated this result transmitted reference range: 10*3/?L. The reference range was not used to interpret this result as normal/abnormal. GRAN MAT (NEUT) % (test code = 770-8) 84.7 % IMM GRAN % (test code = 9499921011) 0.50 % LYMPH % (test code = 736-9) 8.3 % MONO % (test code = 5905-5) 6.1 % EOS % (test code = 713-8) 0.2 % BASO % (test code = 706-2) 0.2 % GRAN MAT x10^3(ANC) (test code = 3250145815) 14.73 10*3/uL 1.88-7.09 H IMM GRAN x10^3 (test code = 8533982848) 0.08 10*3/uL 0.00-0.06 H LYMPH x10^3 (test code = 731-0) 1.45 10*3/uL 1.32-3.29 MONO x10^3 (test code = 742-7) 1.06 10*3/uL 0.33-0.92 H EOS x10^3 (test code = 711-2) 0.03 10*3/uL 0.03-0.39 BASO x10^3 (test code = 704-7) 0.03 10*3/uL 0.01-0.07 Lab Interpretation (test code = 67733-6) Abnormal [facility] CenterAD OR RIANA ONLY - [id number] 08:54:20* Test Item Value Reference Range Interpretation Comme nts RPR (Qualitative) (test code = 58336-0) Nonreactive Nonreactive Lab Interpretation (test cod e = 65881-8) Normal [facility] CenterCentral Neuraxial Nckaw2488-75-08 08:00:00 Margie Hutton MD ? ? 01/27/2024 ?6:53 AM Central Neuraxial Block Date/Time: 01/27/2024 2:00 AMPerformed by: Margie Hutton MDAuthorized by: Margie Hutton MD ?Patient Location: OBEnd Time: 01/27/2024 2:15 AMReason for Block: OB request, Patient request, Labor analgesia, Surgical anesthesia and Post-op pain managementStaff: ?Anesthesiologist: Margie Hutton MD ?Performed by: anesthesiologistPreanesthetic Checklist: patient identified, IV checked, risks and benefits explained, monitors and equipment checked, timeout performed, pre- op evaluation, site marked and anesthesia consentProcedure: ?Type of Neuraxial: Epidural ?Epidural Description: DPE ?Prep: Betadine and patient draped ? ?Monitoring: heart rate, continuous pulse ox, heart rate / toco and NIBP ?Location: lumbar (1-5) ?Lumbar: L4-L5 ?Approach: midline ? ?Technique: catheter and HELGA saline ?Guidance with: landmark technique}Epidural/Spinal Reading and/or Catheter: ?Needle Type: Tuohy ?Needle Gauge: 17 G ?Needle Length: 3.5 in (8.89 cm) ?Needle Insertion Depth: 6 ? ?Catheter at Skin Depth: 11 ?Number of At tempts: 1 ?Test Dose: lidocaine 1.5% with epinephrine 1-to-200,000 ? ?Dose: 3 cc ? ?Catheter Securement Method: surgical tape and TegadermAssessment: ?Block Outcome: a full evaluation is pending ? ?Procedure Assessment: patient tolerated procedure well with no complicationsNotes: ? Smooth and atraumaticUnNorthwest Texas Healthcare SystemHepatitis B Surface Sblxpyt5139-61-06 07:33:05* Test Item Value Reference Range Interpretation Comme nts HBsAg Semi-Quantitative (norm t code = 5195-3) 0.13 Negative [facility] CenterUS PELVIS > 14 WEEKS WITH [id number] 07:10:07Ordering Physician: MOODY ?JACOBS HISTORY: Pelvic pain and COMPARISON: none Permanently recorded sonographic images were stored in the PACs system. LMP: 05/06/2023 Transabdominal imaging was performed. FINDINGS:There is a single live intrauterine gestation in cephalic position with ananterior placenta. ?There is a normal amount of amniotic fluid with an AFIof 16.3 cm. Cervix is not well seen. heart rate is 147 beats perminute. Limited survey demonstrates no definite gross anatomicabnormalities. No full anatomic survey was not performed on this limitedexam. Furthermore, anato rita evaluation is limited by advanced gestationalage. ?The following biometric data were obtained: biometrics yields an average ultrasound age of 38 weeks and 0 days. EFW 3530 Dima by dates: 37weeks and 6 daysUnNorthwest Texas Healthcare SystemHIV 1/2 Ag-Ab with Onvbjp3778-76-56 03:52:57* Test Item Value Reference Range Interpretation Comme nts HIV Semi-quantitative (test code = 54823-4) 0.17 Negative MANUEL (test code = MANUEL) Non-reactive for HIV-1 antigen and HIV-1/HIV-2 antibodies. ?No laboratory evidence of HIV infection. ?Repeat in 2-4 weeks if acute HIV infection is suspected. [facility] CenterMagnesium2024-11-11 03:26:56* Test Item Value Reference Range Interpretation Comme nts MAGNESIUM (test code = 8108537587) 1.8 mg/dL 1.7-2.4 Lab Interpretation (test cod e = 81504-9) Normal [facility] CenterComp. Metabolic Panel (69400)2024-01-27 03:14:38* Test Item Value Reference Range Interpretation Comme nts NA (test code = 0439503990) 133 mmol/L 135-145 L K (test code = 5621948592) 2.9 mmol/L 3.5-5.0 LL CL (test code = 3713120797) 98 mmol/L 98-108 CO2 TOTAL (test code = 4458958318) 20 mmol/L 23-31 L AGAP (test code = 3302150266) 15 2-16 BUN (test code = 8164204900) 9 mg/dL 7-23 GLUCOSE (test code = 5538308712) 102 mg/dL 70-110 CREATININE (test code = 2160-0) 0.52 mg/dL 0.50-1.04 TOTAL BILI (test code = 9689638465) 0.9 mg/dL 0.1-1.1 CALCIUM (test code = 0169179094) 9.4 mg/dL 8.6-10.6 T PROTEIN (test code = 7993075271) 8.0 g/dL 6.3-8.2 ALBUMIN (test code = 7656134629) 4.4 g/dL 3.5-5.0 ALK PHOS (test code = 7630458858) 131 U/L 34-122 H ALTv (test code = 1742-6) 16 U/L 5-35 AST(SGOT) (test code = 3099638752) 24 U/L 13-40 eGFR (test code = 18189-2) 131.6 mL/min/1.73m2 CKD-EPI eGFR (2020). Assuming creatinine has been stable day-to-day for at least three months, the eGFR indicates Category G1 (>= 90 mL/min/1.73 m2) Lab Interpretation (test code = 41943-0) Abnormal [facility] CenterLipase2024-11-11 03:12:13* Test Item Value Reference Range Interpretation Comme nts LIPASE (test code = 4986305035) 62 U/L 0-220 Lab Interpretation (test cod e = 12014-4) Normal [facility] CenterAmylase2024-11-11 03:11:33* Test Item Value Reference Range Interpretation Comme nts LEISA (test code = 3564848778) 71 U/L 35-110 Lab Interpretation (test cod e = 38994-2) Normal [facility] CenterCBC with Lkbyuzceugza4831-87-28 02:48:14* Test Item Value Reference Range Interpretation Comme nts WBC (test code = 6690-2) 10.97 4.30-11.10 RBC (test code = 789-8) 3.92 3.93-5.25 L HGB (test code = 718-7) 11.6 g/dL 11.6-15.0 HCT (test code = 4544-3) 33.2 % 35.7-45.2 L MCV (test code = 787-2) 84.7 fL 80.6-95.5 MCH (test code = 785-6) 29.6 pg 25.9-32.8 MCHC (test code = 786-4) 34.9 g/dL 31.6-35.1 RDW-SD (test code = 45661-7) 37.2 fL 39.0-49.9 L RDW-CV (test code = 788-0) 12.5 % 12.0-15.5 PLT (test code = 777-3) 299 166-358 MPV (test code = 73363-1) 11.7 fL 9.5-12.9 NRBC/100 WBC (test code = 8773982871) 0.0 0.0-10.0 NRBC x10^3 (test code = 5645700711) See_Comment [Automated [employer] ge] The system which generated this result transmitted reference range: 10*3/?L. The reference range was not used to interpret this result as normal/abnormal. GRAN MAT (NEUT) % (test code = 770-8) 76.4 % IMM GRAN % (test code = 7618242922) 0.40 % LYMPH % (test code = 736-9) 14.9 % MONO % (test code = 5905-5) 7.7 % EOS % (test code = 713-8) 0.3 % BASO % (test code = 706-2) 0.3 % GRAN MAT x10^3(ANC) (test code = 9903906095) 8.38 10*3/uL 1.88-7.09 H IMM GRAN x10^3 (test code = 0597319041) 0.04 10*3/uL 0.00-0.06 LYMPH x10^3 (test code = 731-0) 1.64 10*3/uL 1.32-3.29 MONO x10^3 (test code = 742-7) 0.85 10*3/uL 0.33-0.92 EOS x10^3 (test code = 711-2) 0.03 10*3/uL 0.03-0.39 BASO x10^3 (test code = 704-7) 0.03 10*3/uL 0.01-0.07 Lab Interpretation (test code = 23260-0) Abnormal [facility] CenterType and Screen - ONCE [id number] 02:45:00 * Test Item Value Reference Range Interpretation Comme nts ABO & RH (test code = 20) A POSITIVE IAT (test code = 1185) Negative [facility] CenterCBC WITH [id number] 20:16:44* Test Item Value Reference Range Interpretation Comme nts WBC (test code = 6690-2) 16.20 4.30-11.10 H RBC (test code = 789-8) 3.80 3.93-5.25 L HGB (test code = 718-7) 11.7 g/dL 11.6-15.0 HCT (test code = 4544-3) 33.7 % 35.7-45.2 L MCV (test code = 787-2) 88.7 fL 80.6-95.5 MCH (test code = 785-6) 30.8 pg 25.9-32.8 MCHC (test code = 786-4) 34.7 g/dL 31.6-35.1 RDW-SD (test code = 20682-8) 38.5 fL 39.0-49.9 L RDW-CV (test code = 788-0) 12.1 % 12.0-15.5 PLT (test code = 777-3) 295 166-358 MPV (test code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
[2024-03-15] MEDS ORDERED: KETOROLAC 30 MG/ML INJ ONE (15:32)
[2024-03-15] MEDS ORDERED: dexAMETHasone 4 MG/ML VIAL ONE (15:33)
[2024-03-15 16:09] LABS: Specific Gravity 1.006 (1.005-1.030); Transitional Epithelial <5 /HPF (None Seen); Urine Bacteria <20 /HPF (<20); Urine Bilirubin NEGATIVE (Negative); Urine Blood 2+ (Negative); Urine Clarity Extremely Turbid (Clear); Urine Color Colorless (Yellow); Urine Culture Reflex Order REFLEXED; Urine Glucose NEGATIVE (Negative); Urine Ketones NEGATIVE (Negative); Urine Microscopic Reflex YN ORDER UMIC; Urine Nitrite NEGATIVE (Negative); Urine Protein NEGATIVE (Negative); Urine Urobilinogen Normal (Normal); Urine pH 6.5 (5.0-7.0)
[2024-03-15 16:11] LABS: Specific Gravity 1.006 (1.005-1.030)
--- NOTE | 2024-03-15 17:25 | RAD REPORT ---
EXAMINATION: CT LUMBAR SPINE WITHOUT CONTRAST CLINICAL INDICATION: Female, 28 years old. PAIN TECHNIQUE: Axial CT images were obtained through the lumbar spine in soft tissue and bone windows wit hout intravenous contrast. Coronal and Sagittal reformatted images were created from the data set. One or more of the following dose reduction techniques were used: Automated exposure control, adjustm ent of the mA and/ or kV according to patient size, and/or iterative reconstruction. Unless otherwise specified, incidental findings do not require dedicated imaging follow-up. [id number]. COMPARISON: No prior exam. FINDINGS: For purposes of this dictation, it is assumed that there are 5 non rib-bearing lumbar type vertebrae, and the most caudal fully segmented lumbar vertebra is labeled L5. ALIGNMENT: The lumbar spine demonstrates normal alignment without scoliosis or spondylolisthesis. BONES: No significant soft tissue abnormalities. No aggressive osseous lesions. DISCS: Broad-based disc bulge which is slightly left eccentric in conjunction with facet and ligament um flavum hypertrophy results in mild bilateral neural foraminal narrowing. No significant central spinal stenosis however there may be some encroachment on the traversing nerve roots at the subarticu lar zones bilaterally. Large mostly central disc extrusion which is partially calcified and presumably compressing the traversing right S1 and possibly additional nerve roots. The neural forame n are mildly narrowed. Mild disc height loss at L5-S1. LEVELS: No significant spinal canal or neural foraminal stenosis. No visualized abnormality within th e spinal canal. SOFT TISSUE: No soft tissue abnormalities. IMPRESSION: Large central disc extrusion at L5-S1 is partially calcified which would suggest a chronic finding ho wever may also be a superimposed acute component. This is almost certainly compresses the right traversing nerve roots. A broad-based disc bulge is also present at L4-5 which is slightly left eccen tric and results in bilateral subarticular zone stenosis that encroaches on the bilateral traversing L5 nerve roots. While the L5-S1 level would be most likely to be symptomatic, this would b e more likely to only explain a right-sided radiculopathy. The findings at L4-5 could explain a bilateral radiculopathy. Consider MRI for further evaluation and neurosurgical referral.
--- NOTE | 2024-03-15 17:56 | ER ---
Nurse's Notes [facility] Name: Juana Gandhi Age: 28 yrs Sex: Female : 1995 Arrival Date: 03/15/2024 Time: 15:04 Bed 15 Private MD: Diagnosis: Intervertebral disc disorders with radiculopathy, lumbosacral region Presentation: 03/15 15:27 Chief complaint: Patient states: low back pain and bilateral leg pain started after I tm6 had my daughter on 01/27/24, but has gotten worse over the last 3 days. Coronavirus screen: Client denies travel out of the [place] in the last 14 days. Ebola Screen: Patient negative for fever greater than or equal to 101.5 degrees Fahrenheit, and additional compatible Ebola Virus Disease symptoms Patient denies exposure to infectious person. Patient denies travel to an Ebola-affected area in the 21 days before illness onset. No symptoms or risks identified at this time. Initial Sepsis Screen: Does the patient meet any 2 criteria? No. Patient's initial sepsis screen is negative. Does the patient have a suspected source of infection? No. Patient's initial sepsis screen is negative. Risk Assessment: Do you want to hurt yourself or someone else? Patient reports no desire to harm self or others. Onset of symptoms was January 27, 2024. 15:27 Method Of Arrival: Ambulatory tm6 15:27 Acuity: JOHN 4 tm6 Triage Assessment: 15:29 General: Appears uncomfortable, Behavior is calm, cooperative. Pain: Complains of pain tm6 in back, right leg and left leg Pain currently is 6 out of 10 on a pain scale. EENT: No signs and/or symptoms were reported regarding the EENT system. Neuro: Level of Consciousness is awake, alert, obeys commands, Oriented to person, place, time, situation. Cardiovascular: Patient's skin is warm and dry. Respiratory: Airway is patent Respiratory effort is even, unlabored, Respiratory pattern is regular, symmetrical. GI: No signs and/or symptoms were reported involving the gastrointestinal system. Abdomen is flat, non-distended. : No signs and/or symptoms were reported regarding the genitourinary system. Derm: No signs and/or symptoms reported regarding the dermatologic system. Musculoskeletal: Reports pain in back, right leg and left leg Pain is 6 out of 10 on a pain scale. 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 - Infectious Disease History:: Denies. - Social history:: Smoking status: Patient denies any tobacco usage or history of. - Family history:: not pertinent. - Hospitalizations: : No recent hospitalization is reported. Screenin:50 [facility] ED Fall Risk Assessment (Adult) History of falling in the last 3 months, hb including since admission No falls in past 3 months (0 pts) Confusion or Disorientation No (0 pts) Intoxicated or Sedated No (0 pts) Impaired Gait No (0 pts) Mobility Assist Device Used No (0 pt) Altered Elimination No (0 pt) Score/Fall Risk Level 0 - 2 = Low Risk Oriented to surroundings, Maintained a safe environment, Educated pt \T\ family on fall prevention, incl call for assistance when getting out of bed. Abuse screen: Denies threats or abuse. Denies injuries from another. Nutritional screening: No deficits noted. Tuberculosis screening: No symptoms or risk factors identified. Assessment: 15:50 General: Appears in no apparent distress. uncomfortable, Behavior is calm, cooperative. hb Pain: Pain currently is 10 out of 10 on a pain scale. Neuro: Level of Consciousness is awake, alert, obeys commands, Oriented to person, place, time, situation. Cardiovascular: Patient's skin is warm and dry. Respiratory: Respiratory effort is even, unlabored, Respiratory pattern is regular, symmetrical. GI: No signs and/or symptoms were reported involving the gastrointestinal system. : No signs and/or symptoms were reported regarding the genitourinary system. EENT: No signs and/or symptoms were reported regarding the EENT system. Derm: Skin is pink, warm \T\ dry. Musculoskeletal: Reports low back pain that radiates to legs. Vital Signs: 15:27 Temp 97.7(TE); Pulse Ox 100% on R/A; Weight 83.91 kg; Height 5 ft. 7 in. ; Pain 6/10; tm6 15:27 BP 123 / 88; Pulse 69; Resp 18; Pulse Ox 100% on R/A; MAP 99 mmHg; tm6 15:27 Body Mass Index 28.97 (83.91 kg, 170.18 cm) tm6 15:27 Pain Scale: Adult tm6 ED Course: 15:07 Patient arrived in ED. im 15:11 Rafi Abdi MD is Attending Physician. rn 15:29 Triage completed. tm6 15:29 Arm band placed on right wrist. tm6 15:35 Kristin Alvarez, RN is Primary Nurse. hb 15:48 Inserted saline lock: 20 gauge in left antecubital area, using aseptic technique. hb Flushed with 10 mL NS. 15:50 Patient has correct armband on for positive identification. Provided Education on: use hb of call light . 15:50 No provider procedures requiring assistance completed. hb 16:52 CT Lumbar Spine Wo Con In Process Unspecified. EDMS Administered Medications: 15:49 Drug: Ketorolac IVP 30 mg IVP once Route: IVP; Site: left antecubital; hb 15:49 Drug: Decadron - Dexamethasone IVP 10 mg IVP once Route: IVP; Site: left antecubital; hb Medication: 15:50 VIS not applicable for this client. hb Outcome: 17:56 Discharge ordered by . rn 18:24 Patient left the ED. hb Signatures: Dispatcher [employer] EDMS Rafi Abdi MD MD rn Baxter, Heather, RN RN Lucia Richards Tawney, RN RN tm6
--- NOTE | 2024-03-15 17:56 | EDPHYS ---
Physician Documentation [facility] Name: Juana Gandhi Age: 28 yrs Sex: Female : 1995 Arrival Date: 03/15/2024 Time: 15:04 Bed 15 Private MD: ED Physician Rafi Abdi HPI: 03/15 16:40 This 28 yrs old Female presents to ER via Ambulatory with complaints of Low Back Pain, rn Leg Pain - both. 16:40 The patient presents with pain that is acute. The symptoms are located in the low back. rn The pain radiates to the right leg. Onset: The symptoms/episode began/occurred 1 month(s) ago. Modifying factors: The patient symptoms are alleviated by nothing, the patient symptoms are aggravated by any movement. Severity of symptoms: At their worst the symptoms were moderate, in the emergency department the symptoms are unchanged. The patient has not experienced similar symptoms in the past. Patient reports right lower back pain that radiates to the back of right thigh. No trauma. Back pain started shortly after giving to her daughter a month ago. No bowel or bladder issues. No weakness or numbness. No abdominal pain. Reports pain with movement.. 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 - Infectious Disease History:: Denies. - Social history:: Smoking status: Patient denies any tobacco usage or history of. - Family history:: not pertinent. - Hospitalizations: : No recent hospitalization is reported. ROS: 16:40 Constitutional: Negative for fever, chills, and weight loss, Cardiovascular: Negative rn for chest pain, palpitations, and edema, Respiratory: Negative for shortness of breath, cough, wheezing, and pleuritic chest pain, Abdomen/GI: Negative for abdominal pain, nausea, vomiting, diarrhea, and constipation, Back: Positive for right lower back pain : Negative for injury, bleeding, discharge, and swelling, MS/Extremity: Negative for injury and deformity, Skin: Negative for injury, rash, and discoloration, Neuro: Negative for headache, weakness, numbness, tingling, and seizure, Exam: 16:40 Constitutional: This is a well developed, well nourished patient who is awake, alert, 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 No pulse deficits. Respiratory: No increased work of breathing, no retractions or nasal flaring. Abdomen/GI: Soft, non-tender Back: No spinal tenderness. No costovertebral tenderness. MS/ Extremity: Pulses equal, no cyanosis. Neurovascular intact. Full, normal range of motion. Equal circumference. Neuro: Awake and alert, GCS 15, Motor strength 5/5 in all extremities. Sensory grossly intact. Cerebellar exam normal. Normal gait. Vital Signs: 15:27 Temp 97.7(TE); Pulse Ox 100% on R/A; Weight 83.91 kg; Height 5 ft. 7 in. ; Pain 6/10; tm6 15:27 BP 123 / 88; Pulse 69; Resp 18; Pulse Ox 100% on R/A; MAP 99 mmHg; tm6 15:27 Body Mass Index 28.97 (83.91 kg, 170.18 cm) tm6 15:27 Pain Scale: Adult tm6 MDM: 15:11 Medical Screening Exam initiated rn 17:55 Differential diagnosis: sciatica, Herniated disc. Data reviewed: vital signs, nurses rn notes, radiologic studies, CT scan, and as a result, I will discharge patient. Counseling: I had a detailed discussion with the patient and/or guardian regarding the historical points, exam findings, and any diagnostic results supporting the discharge/admit diagnosis, lab results, radiology results, the need for outpatient follow up, to return to the emergency department if symptoms worsen or persist or if there are any questions or concerns that arise at home. Response to treatment: the patient's symptoms have markedly improved after treatment, and as a result, I will discharge patient. Special discussion: I discussed with the patient/guardian in detail that at this point there is no indication for admission to the hospital. It is understood, however, that if the symptoms persist or worsen the patient needs to return immediately for re-evaluation. Further emergent ED testing is not indicated at this point in time. I discussed with the patient/guardian in detail the need to arrange with the PCP or specialist further outpatient testing, MRI, Based on the history and exam findings, there is no indication for further emergent testing or inpatient evaluation. I discussed with the patient/guardian the need to see the back specialist for further evaluation of the symptoms. 03/15 15:30 Order name: Urinalysis w/ reflexes; Complete Time: 17:48 eb 03/15 15:30 Order name: PREGU; Complete Time: 17:48 eb 03/15 16:15 Order name: Urine Culture EDOR 03/15 15:27 Order name: CT Lumbar Spine Wo Con; Complete Time: 17:48 rn 03/15 15:27 Order name: IV Start; Complete Time: 15:49 rn Administered Medications: 15:49 Drug: Ketorolac IVP 30 mg IVP once Route: IVP; Site: left antecubital; hb 15:49 Drug: Decadron - Dexamethasone IVP 10 mg IVP once Route: IVP; Site: left antecubital; hb Disposition Summary: 03/15/24 17:56 Discharge Ordered Notes: Location: Home rn Problem: new rn Symptoms: have improved rn Condition: Stable rn Diagnosis - Intervertebral disc disorders with radiculopathy, lumbosacral region rn Followup: rn - With: Private Physician - When: As needed - Reason: Recheck today's complaints, Re-evaluation by your physician Discharge Instructions: - Discharge Summary Sheet rn - Herniated Disk rn - Lumbosacral Radiculopathy rn Forms: - Medication Reconciliation Form rn - Antibiotic radiology rn - Prescription Opioid Use rn - Patient Portal Instructions rn - Leadership Thank You Letter rn Prescriptions: - gabapentin 100 mg Oral capsule - take 1 capsule ORAL route every 12 hours As needed; 14 capsule; Refills: 0, rn Product Selection Permitted - Medrol (Arvind) 4 mg Oral Tablets, Dose Pack - take 1 tablet ORAL route as directed - follow package instructions; 1 packet; rn Refills: 0, Product Selection Permitted Signatures: Dispatcher [employer] Rafi Vail MD MD rn Baxter, Heather RN RN Willian Renee RN RN tm6
[2024-03-15 18:29] VITALS: BP 123/88; TEMP 97.7; O2SAT 100
== END 2024-03-15 18:24 | disposition home or self-care (01) ==
LOC: ER 15:04
DX: M51.17 Intervertebral disc disorders with radiculopathy, lumbosacral region (principal)
CPT/HCPCS: 87088; 81001; 87086; 81025; 72131; 96375; 96374; 99284; J1100